=== PATIENT | male | born 1965 | race Caucasian/White ===

== ENCOUNTER 2017-03-04 08:03 | Inpatient (IN) | payer OTHER ==
[~2017-03-04] VITALS: Ht 162.6 cm; Wt 67.2 kg
[~2017-03-04 08:03] MED LIST: ASPI-1182 PO; ATEN25TA PO; INSLAN SQ; KDUR20 PO; QUET100T PO; SIMV-261 PO; TRAZ150 PO
[2017-03-04 08:28] LABS: GLUCOSE COMMENT 2 Doctor Notified; GLUCOSE,POINT OF CARE 517 MG/DL (70-110)
[2017-03-04] MEDS ORDERED: INSULIN REGULAR, HUMAN 100 UNITS/ML IVP ONE (08:30)
[2017-03-04] MEDS ORDERED: SODIUM CHLORIDE 0.9% 1,000 ML IV ONE ×4 (08:30→13:30)
[2017-03-04 08:44] LABS: GLUCOSE, URINE (UA) >=1000 mg/dL (NEGATIVE); KETONES,URINE 40 mg/dL (NEGATIVE); LEUKOCYTE ESTERASE ,URINE NEGATIVE (NEGATIVE); OCCULT BLOOD,URINE MODERATE (NEGATIVE); PH,URINE 5.5 (5.0-8.0); PROTEIN,URINE SEE CONFIRM (NEGATIVE)
[2017-03-04 08:50] LABS: APPEARANCE,URINE SLIGHTLY CLOUDY (CLEAR); SULFOSALICYLIC ACID,URINE 3+ (Negative)
[2017-03-04 08:51] LABS: FINE GRANULAR CASTS,URINE 0-2 /LPF (None Seen); WBC,URINE 0-2 /HPF (0-5)
[2017-03-04 09:21] LABS: BASOPHILS % (AUTO) 0.5 % (0.0-2.0); EOSINOPHILS % (AUTO) 0 % (1.0-6.0); HEMOGLOBIN 18.3 g/dL (13.5-17.5); LYMPHOCYTES # (AUTO) 1.2 K/uL (1.0-4.8); LYMPHOCYTES % (AUTO) 13.6 % (22.0-44.0); MEAN CORPUSCULAR HEMOGLOBIN 31.8 pg (26.0-34.0); MEAN CORPUSCULAR HGB CONC 33.9 G/dL (31.0-37.0); MEAN CORPUSCULAR VOLUME 94 fL (80-100); MONOCYTES # (AUTO) 0.6 K/uL (0.1-1.0); MONOCYTES % (AUTO) 6.3 % (2.0-9.0); NEUTROPHILS # (AUTO) 7.2 K/uL (1.8-7.7); NEUTROPHILS % (AUTO) 79.6 % (40.0-70.0); PLATELET COUNT (AUTO) 220 K/uL (150-450); RED BLOOD CELL COUNT(AUTO) 5.75 MIL/uL (4.50-5.90); RED CELL DISTRIBUTION WIDTH 12.6 % (11.5-14.5); WHITE BLOOD COUNT (AUTO) 9.1 K/uL (4.5-11.0)
[2017-03-04 09:55] LABS: ALANINE AMINOTRANSFERASE 31 U/L (12-78); ALBUMIN 4.9 g/dL (3.4-5.0); ANION GAP 31 mmol/L (8-16); ASPARTATE AMINOTRANSFERASE 15 U/L (15-37); BILIRUBIN,TOTAL 0.7 mg/dL (0.1-1.0); CALCIUM, TOTAL 10.8 mg/dL (8.8-10.5); CARBON DIOXIDE 15 mmol/L (22-29); CHLORIDE 104 mmol/L (98-107); CREATININE 2.53 mg/dL (0.60-1.30); GLOMERULAR FILTR. RATE CALC 27 mL/min (>60); POTASSIUM 5.4 mmol/L (3.5-5.1); SODIUM SERUM 150 mmol/L (136-145); TOTAL PROTEIN, SERUM 9.6 g/dL (6.4-8.2); UREA NITROGEN, BLOOD 47 mg/dL (7-18)
[2017-03-04] MEDS ORDERED: INSULIN REGULAR, HUMAN 100 UNITS in SODIUM CHLORIDE 0.9% 99 ML IV SCH ×2 (10:15)
[2017-03-04 10:53] LABS: GLUCOSE,POINT OF CARE 421 MG/DL (70-110)
[2017-03-04 11:39] LABS: GLUCOSE,POINT OF CARE 452 MG/DL (70-110)
[2017-03-04] MEDS ORDERED: ACETAMINOPHEN 325 MG TABLET PO PRN (11:45)
[2017-03-04] MEDS ORDERED: ONDANSETRON HCL 4 MG/2 ML VIAL IVP PRN ×2 (11:45→15:00)
[2017-03-04 12:00] VITALS: BP 144/99
[2017-03-04] MEDS ORDERED: INSULIN REGULAR, HUMAN 100 UNITS in SODIUM CHLORIDE 0.9% 99 ML IV PRN ×2 (12:44)
[2017-03-04] MEDS ORDERED: POTASSIUM CHLORIDE 40 MEQ in SODIUM CHLORIDE 0.45% 1,000 ML IV PRN (12:44)
[2017-03-04] MEDS ORDERED: DEXTROSE 5%-0.45% SODIUM CHL 1,000 ML IV PRN (12:44)
[2017-03-04] MEDS ORDERED: SODIUM CHLORIDE 0.45% 1,000 ML IV PRN (12:44)
[2017-03-04] MEDS ORDERED: POTASSIUM CHL 20 MEQ/0.45% NS 1,000 ML IV PRN (12:44)
[2017-03-04] MEDS ORDERED: DEXTROSE 50%-WATER 25 GM/50 ML SYRINGE IVP PRN ×2 (12:45→20:30)
[2017-03-04] MEDS ORDERED: MAGNESIUM SULFATE 2 GM in DEXTROSE 5%-WATER 50 ML IV PRN (13:00)
[2017-03-04] MEDS ORDERED: MAGNESIUM OXIDE 400 MG TABLET PO PRN (13:00)
[2017-03-04] MEDS ORDERED: POTASSIUM CHL 10 MEQ/WATER 50 ML IV PRN (13:00)
[2017-03-04] MEDS ORDERED: POTASSIUM CHLORIDE 20 MEQ ER TABLET PO PRN ×2 (13:00)
[2017-03-04] MEDS ORDERED: MAGNESIUM SULFATE 4 GM/WATER 100 ML IV PRN (13:00)
[2017-03-04] MEDS: INSULIN REGULAR, HUMAN 100 UNITS/ML IVP PRN ×2 (13:14→14:23)
[2017-03-04 14:48] LABS: GLUCOSE COMMENT 1 Received Meds; GLUCOSE,POINT OF CARE 264 MG/DL (70-110)
[2017-03-04 14:48] LABS: GLUCOSE COMMENT 1 Received Meds; GLUCOSE,POINT OF CARE 320 MG/DL (70-110)
[2017-03-04 14:48] LABS: GLUCOSE COMMENT 1 Received Meds; GLUCOSE COMMENT 2 Doctor Notified; GLUCOSE,POINT OF CARE 370 MG/DL (70-110)
[2017-03-04 14:57] LABS: ANION GAP 20 mmol/L (8-16); CALCIUM, TOTAL 9.3 mg/dL (8.8-10.5); CARBON DIOXIDE 20 mmol/L (22-29); CHLORIDE 119 mmol/L (98-107); GLOMERULAR FILTR. RATE CALC 37 mL/min (>60); SODIUM SERUM 159 mmol/L (136-145); UREA NITROGEN, BLOOD 40 mg/dL (7-18)
[2017-03-04 16:00] VITALS: BP 134/74
[2017-03-04 17:26] LABS: OSMOLALITY 368 mOS/kg (270-310)
[2017-03-04 18:48] LABS: CALCIUM, TOTAL 9.4 mg/dL (8.8-10.5); CREATININE 1.74 mg/dL (0.60-1.30); POTASSIUM 3.8 mmol/L (3.5-5.1)
[2017-03-04] MEDS ORDERED: SODIUM CHLORIDE 0.9% 500 ML IV ONE (19:32)
[2017-03-04] MEDS: POTASSIUM CHL 10 MEQ/WATER 50 ML IV PRN ×2 (19:45→20:47)
[2017-03-04 20:00] VITALS: BP 126/75
[2017-03-04 20:13] LABS: GLUCOSE COMMENT 1 Received Meds; GLUCOSE,POINT OF CARE 164 MG/DL (70-110)
[2017-03-04 20:13] LABS: GLUCOSE COMMENT 1 Received Meds; GLUCOSE,POINT OF CARE 113 MG/DL (70-110)
[2017-03-04 20:13] LABS: GLUCOSE COMMENT 1 Received Meds; GLUCOSE,POINT OF CARE 78 MG/DL (70-110)
[2017-03-04 20:13] LABS: GLUCOSE COMMENT 1 Received Meds; GLUCOSE,POINT OF CARE 141 MG/DL (70-110)
[2017-03-04 20:13] LABS: GLUCOSE COMMENT 1 Received Meds; GLUCOSE,POINT OF CARE 110 MG/DL (70-110)
[2017-03-04 20:52] LABS: GLUCOSE,POINT OF CARE 106 MG/DL (70-110)
[2017-03-04] MEDS: PANTOPRAZOLE SODIUM 40 MG/VIAL IVP SCH (21:44)
[2017-03-04] MEDS: TraZODone HCL 150 MG TABLET PO SCH (21:44)
[2017-03-04] MEDS: QUEtiapine FUMARATE 100 MG TABLET PO SCH (21:44)
[2017-03-05] VITALS: BP 112/71
[2017-03-05] MEDS: INSULIN GLARGINE,HUM.REC.ANLOG 100 UNITS/ML SQ SCH ×3 (00:24→21:14)
[2017-03-05] MEDS: INSULIN ASPART 100 UNITS/ML SQ PRN ×5 (00:24→21:16)
[2017-03-05 04:00] VITALS: BP 114/64
[2017-03-05 05:33] LABS: BASOPHILS # (AUTO) 0.04 K/uL (0.00-0.20); BASOPHILS % (AUTO) 0.3 % (0.0-2.0); EOSINOPHILS # (AUTO) 0.01 K/uL (0.00-0.70); EOSINOPHILS % (AUTO) 0.05 % (1.0-6.0); HEMATOCRIT 47.2 % (41-53); HEMOGLOBIN 15.8 g/dL (13.5-17.5); LYMPHOCYTES # (AUTO) 2.1 K/uL (1.0-4.8); MEAN CORPUSCULAR HEMOGLOBIN 32.6 pg (26.0-34.0); MEAN CORPUSCULAR HGB CONC 33.6 G/dL (31.0-37.0); MEAN CORPUSCULAR VOLUME 97 fL (80-100); MONOCYTES # (AUTO) 0.6 K/uL (0.1-1.0); MONOCYTES % (AUTO) 4.5 % (2.0-9.0); NEUTROPHILS # (AUTO) 10.4 K/uL (1.8-7.7); NEUTROPHILS % (AUTO) 79.1 % (40.0-70.0); PLATELET COUNT (AUTO) 150 K/uL (150-450); RED BLOOD CELL COUNT(AUTO) 4.85 MIL/uL (4.50-5.90); RED CELL DISTRIBUTION WIDTH 12.5 % (11.5-14.5)
[2017-03-05 05:38] LABS: WHITE BLOOD COUNT (AUTO) 14.1 K/uL (4.5-11.0)
[2017-03-05 05:53] LABS: GLUCOSE,POINT OF CARE 83 MG/DL (70-110)
[2017-03-05 05:53] LABS: GLUCOSE COMMENT 1 Received Meds; GLUCOSE,POINT OF CARE 182 MG/DL (70-110)
[2017-03-05 06:00] LABS: CALCIUM, TOTAL 9.3 mg/dL (8.8-10.5); CREATININE 1.86 mg/dL (0.60-1.30); MAGNESIUM 2.5 mg/dL (1.80-2.40); POTASSIUM 3.8 mmol/L (3.5-5.1)
[2017-03-05 06:13] LABS: GLUCOSE COMMENT 1 Received Meds; GLUCOSE,POINT OF CARE 207 MG/DL (70-110)
[2017-03-05 08:00] VITALS: BP 127/77
[2017-03-05] MEDS: PANTOPRAZOLE SODIUM 40 MG/VIAL IVP SCH ×2 (08:14→19:46)
[2017-03-05 14:08] VITALS: BP 139/84
[2017-03-05 15:53] VITALS: BP 135/88
[2017-03-05 15:57] LABS: GLUCOSE COMMENT 1 Received Meds; GLUCOSE,POINT OF CARE 278 MG/DL (70-110)
[2017-03-05] MEDS: QUEtiapine FUMARATE 100 MG TABLET PO SCH (19:46)
[2017-03-05] MEDS: TraZODone HCL 150 MG TABLET PO SCH (19:46)
[2017-03-05 19:48] VITALS: BP 145/79
[2017-03-05 22:33] LABS: GLUCOSE COMMENT 1 Juice/Food/D50 Given; GLUCOSE,POINT OF CARE 253 MG/DL (70-110)
[2017-03-06] VITALS (7 sets, daily range): BP systolic 114–160; BP diastolic 75–96
[2017-03-06] MEDS: INSULIN ASPART 100 UNITS/ML SQ PRN ×4 (05:47→21:57)
[2017-03-06 06:32] LABS: BASOPHILS % (AUTO) 0.4 % (0.0-2.0); EOSINOPHILS % (AUTO) 0.5 % (1.0-6.0); HEMATOCRIT 41.8 % (41-53); HEMOGLOBIN 14.9 g/dL (13.5-17.5); LYMPHOCYTES # (AUTO) 2.7 K/uL (1.0-4.8); LYMPHOCYTES % (AUTO) 31.1 % (22.0-44.0); MEAN CORPUSCULAR HEMOGLOBIN 34.4 pg (26.0-34.0); MEAN CORPUSCULAR HGB CONC 35.5 G/dL (31.0-37.0); MEAN CORPUSCULAR VOLUME 97 fL (80-100); MONOCYTES # (AUTO) 0.8 K/uL (0.1-1.0); MONOCYTES % (AUTO) 9.4 % (2.0-9.0); NEUTROPHILS % (AUTO) 58.6 % (40.0-70.0); PLATELET COUNT (AUTO) 111 K/uL (150-450); RED BLOOD CELL COUNT(AUTO) 4.31 MIL/uL (4.50-5.90); RED CELL DISTRIBUTION WIDTH 12.3 % (11.5-14.5); WHITE BLOOD COUNT (AUTO) 8.6 K/uL (4.5-11.0)
[2017-03-06] MEDS ORDERED: INFLUENZA VIRUS VACCINE QVS 2017-18 (3YR+)/PF 60 MCG/0.5 ML SYRINGE IM ONE (06:45)
[2017-03-06] MEDS ORDERED: PNEUMOCOCCAL VACCINE POLYVALENT 0.5 ML VIAL [PPSV23] IM ONE (06:45)
[2017-03-06 06:57] LABS: ALBUMIN 3.4 g/dL (3.4-5.0); BILIRUBIN,TOTAL 0.9 mg/dL (0.1-1.0); CALCIUM, TOTAL 9.2 mg/dL (8.8-10.5); CREATININE 1.49 mg/dL (0.60-1.30); MAGNESIUM 2.3 mg/dL (1.80-2.40); POTASSIUM 3.1 mmol/L (3.5-5.1); TOTAL PROTEIN, SERUM 6.9 g/dL (6.4-8.2)
[2017-03-06 07:09] LABS: HEMOGLOBIN A1C 9.6 % (4.5-6.2)
[2017-03-06] MEDS: PANTOPRAZOLE SODIUM 40 MG/VIAL IVP SCH ×2 (08:00→19:40)
[2017-03-06] MEDS: INSULIN GLARGINE,HUM.REC.ANLOG 100 UNITS/ML SQ SCH ×2 (08:01→21:09)
[2017-03-06 11:42] LABS: GLUCOSE COMMENT 1 Juice/Food/D50 Given; GLUCOSE,POINT OF CARE 173 MG/DL (70-110)
[2017-03-06 11:58] LABS: GLUCOSE,POINT OF CARE 172 MG/DL (70-110)
[2017-03-06 18:28] LABS: GLUCOSE,POINT OF CARE 295 MG/DL (70-110)
[2017-03-06] MEDS: TraZODone HCL 150 MG TABLET PO SCH (19:40)
[2017-03-06] MEDS: QUEtiapine FUMARATE 100 MG TABLET PO SCH (19:41)
[2017-03-06] MEDS ORDERED: MAGNESIUM HYDROXIDE SUSPENSION 30 ML UDCUP PO PRN (20:30)
[2017-03-06] MEDS: DOCUSATE SODIUM 100 MG CAPSULE PO SCH (21:00)
[2017-03-07 00:23] LABS: GLUCOSE COMMENT 1 Juice/Food/D50 Given; GLUCOSE,POINT OF CARE 167 MG/DL (70-110)
[2017-03-07 04:58] VITALS: BP 136/89
[2017-03-07 05:33] LABS: GLUCOSE,POINT OF CARE 205 MG/DL (70-110)
[2017-03-07 07:02] LABS: GLUCOSE COMMENT 1 Juice/Food/D50 Given; GLUCOSE,POINT OF CARE 118 MG/DL (70-110)
[2017-03-07] MEDS: DOCUSATE SODIUM 100 MG CAPSULE PO SCH ×2 (07:45→19:48)
[2017-03-07] MEDS: PANTOPRAZOLE SODIUM 40 MG/VIAL IVP SCH (07:46)
[2017-03-07 07:59] VITALS: BP 152/91
[2017-03-07] MEDS: INSULIN GLARGINE,HUM.REC.ANLOG 100 UNITS/ML SQ SCH ×2 (08:54→22:05)
[2017-03-07 11:15] VITALS: BP 137/94
[2017-03-07] MEDS: INSULIN ASPART 100 UNITS/ML SQ PRN ×2 (12:00→17:43)
[2017-03-07 12:27] LABS: GLUCOSE,POINT OF CARE 248 MG/DL (70-110)
[2017-03-07] MEDS: SitaGLIPtin PHOSPHATE 50 MG TABLET PO SCH (15:16)
[2017-03-07 16:10] VITALS: BP 149/91
[2017-03-07] MEDS: MetFORMIN HCL 500 MG TABLET PO SCH (17:44)
[2017-03-07 17:58] LABS: GLUCOSE,POINT OF CARE 187 MG/DL (70-110)
[2017-03-07 19:36] VITALS: BP 126/78
[2017-03-07] MEDS: TraZODone HCL 150 MG TABLET PO SCH (19:48)
[2017-03-07] MEDS: QUEtiapine FUMARATE 100 MG TABLET PO SCH (19:48)
[2017-03-07 23:41] VITALS: BP 140/67
[2017-03-08 05:13] VITALS: BP 136/75
[2017-03-08 05:27] LABS: GLUCOSE,POINT OF CARE 152 MG/DL (70-110)
[2017-03-08] MEDS ORDERED: PANTOPRAZOLE SODIUM 40 MG DR TABLET PO SCH (06:30)
[2017-03-08 07:47] LABS: GLUCOSE COMMENT 1 Juice/Food/D50 Given; GLUCOSE,POINT OF CARE 132 MG/DL (70-110)
[2017-03-08] MEDS: DOCUSATE SODIUM 100 MG CAPSULE PO SCH (08:03)
[2017-03-08] MEDS: SitaGLIPtin PHOSPHATE 50 MG TABLET PO SCH (08:03)
[2017-03-08] MEDS: MetFORMIN HCL 500 MG TABLET PO SCH ×2 (08:03→17:15)
[2017-03-08] MEDS: INSULIN GLARGINE,HUM.REC.ANLOG 100 UNITS/ML SQ SCH ×2 (08:06→19:20)
[2017-03-08 08:09] VITALS: BP 118/69
[2017-03-08 11:14] VITALS: BP 128/78
[2017-03-08] MEDS: INSULIN ASPART 100 UNITS/ML SQ PRN ×2 (11:36→17:14)
[2017-03-08 11:42] LABS: GLUCOSE COMMENT 1 Received Meds; GLUCOSE,POINT OF CARE 261 MG/DL (70-110)
[2017-03-08 17:22] LABS: GLUCOSE COMMENT 1 Received Meds; GLUCOSE,POINT OF CARE 202 MG/DL (70-110)
[2017-03-08] MEDS ORDERED: INSLAN SQ (18:58)
[2017-03-08] MEDS ORDERED: METF500T4 PO (18:59)
[2017-03-08] MEDS ORDERED: SITA50 PO (18:59)
[2017-03-08] MEDS: TraZODone HCL 150 MG TABLET PO SCH (19:20)
[2017-03-08] MEDS: QUEtiapine FUMARATE 100 MG TABLET PO SCH (19:20)
== END 2017-03-08 19:30 | disposition home or self-care (01) | DRG 282 ==
LOC: EMS 08:05 → ICU 12:00 → 6N 03-05 12:06
PROVIDERS: ADMIT Internal Medicine; ATTEND Internal Medicine
PROC: 3E0234Z Introduction of Serum, Toxoid and Vaccine into Muscle, Percutaneous Approach (ICD-10-PCS; principal; 2017-03-06)
PROC: 3E0234Z Introduction of Serum, Toxoid and Vaccine into Muscle, Percutaneous Approach (ICD-10-PCS; 2017-03-06)
DX: K85.90 Acute pancreatitis without necrosis or infection, unspecified (principal); E11.10 Type 2 diabetes mellitus with ketoacidosis without coma; N18.4 Chronic kidney disease, stage 4 (severe); R65.10 Systemic inflammatory response syndrome (SIRS) of non-infectious origin without acute organ dysfunction; F20.9 Schizophrenia, unspecified; I10 Essential (primary) hypertension; E78.00 Pure hypercholesterolemia, unspecified; K59.00 Constipation, unspecified; Z79.4 Long term (current) use of insulin; Z23 Encounter for immunization
CPT/HCPCS: 51702; 82948; 82962; 83036; 83735; 83930; 84132; 87081; 90471; 93005; 96361; 96365; 96375; 99291; C9113; J1815; J3480; J7030; J7040; J7050